=== PATIENT | male | born 1935 | race Caucasian/White ===

== ENCOUNTER 2021-08-02 00:50 | Day surgery (SDC) | payer MEDICARE, SELFPAY ==
[2021-07-26 10:41] VITALS: BMI 41.5
--- NOTE | 2021-07-26 11:13 | PC.NURSE ---
Report to the Outpatient Waiting Room, entrance under the green pavilion located off [facility], at time __0815 on date __08/02/21 . OR Time: ____101____. - You and your visitor will be asked a series of questions to screen for COVID 19 for your protection. - A mask is required within the hospital. Preoperative COVID Testing Requirements: No COVID Test needed if: (proof is required; if not received patient will have Rapid Test prior to entry) - Patient has received COVID Vaccine at least 14 days prior to procedure date or - Patient has positive COVID test result within last 90 days of surgery date. COVID Test needed if above criteria is not met If not COVID vaccinated a COVID test must be conducted within 72 hours of surgery and patient is asked to isolate self from time of testing until procedure. You will go to the [facility] for your COVID testing. The [facility] is located at the corner of [address] [facility]. You will only be called if COVID results are positive and your surgeon may reschedule your elective surgery date. Patients may have clear liquids (water, carbonated beverages, clear teas, apple juice) until 3 hours prior to surgery (0715 AM) with a maximum of 20 ounces. - No food from midnight until time of surgery - Infants may have breast milk until 4 hours before surgery, formula 6 hours prior to surgery. - Children will be allowed to drink immediately following surgery. If applicable, please bring a bottle or sippy cup to assist with drinking. Juice, water, soda, and popsicles are readily available. For infants on formula, please bring formula the day of surgery. Pacifiers are allowed. Take the following medications with a SIP of water the morning of surgery: __NONE__ Medications to discontinue per physician _STATES ALREADY STOPPING ASPIRIN 06/27/21, MULTIVITAMIN 3 DAYS PRIOR TO SURGERY_ Date to take last dose____07/29/21 Please no make-up, nail djiboutian, hairspray, perfume, deodorant, or body powder the day of surgery. No jewelry (including any body piercings) or valuables the day of surgery, leave them at home. Please take a shower or bath the night before, or the morning of, surgery with an antibacterial soap. Wear comfortable, loose fitting clothing. Children are encouraged to wear pajamas. - Jewelry must be removed prior to entering the operating room. Rings and piercings that are not removed may be cut off. - The hospital will not accept responsibility for valuables. - Please leave all valuables, including medications, at home the day of surgery. If you are going home after surgery, a licensed cart driver must drive you home. - NO public transportation without another adult. - We recommend that an adult stay with you for 24 hours following discharge. - We also recommend that you do not drive, make important decision, drink alcoholic beverages, or take any drugs that were not prescribed by your health care provider for at least 24 hours after your discharge time. For Pediatric surgeries, we recommend two adults accompany the child home (only one inside the building at this time). One visitor will be allowed to accompany the patient into the hospital. Patients visitor will be instructed to remain with patient at all times or leave the building. We will allow the visitor to come back to the postoperative area when patient is ready. Follow any additional instructions given to you from your surgeon. Telephone instructions given to _ZAY ALONZO and asked if any additional questions and then verbalized understanding. Patient advised to call surgeon office or pre surgery nurse liaison [phone] if any additional questions.
--- NOTE | 2021-07-26 13:40 | P.HP_ITS ---
H&P: HPI History of Present Illness Date/Time: 07/26/21 13:40 This patient is a pleasant 85-year-old male with longstanding outlet obstructive voiding symptoms that have become refractory to medical management. Specific he reports urinary hesitancy intermittent see with diminished stream and sense of incomplete emptying. He has had episodes of urinary retention that have required catheterization in the past. Although he has been voiding on combination therapy he still is troubled by his voiding pattern And incomplete bladder emptying. After discussion therapeutic options including laser prostatectomy minimally invasive procedures for BPH and TURP he elects for the latter. He is aware of the risk of this including, but not limited to, adverse cardiopulmonary events, persistent voiding symptoms hematuria in retrograde ejaculation. Chief Complaint: Difficulty urinating Review of Systems Cardiovascular: Cardiovascular: Denies chest pain, Denies lightheadedness, Denies palpitations and Denies dyspnea Respiratory: Respiratory: Denies dyspnea Gastrointestinal: Gastrointestinal: Denies diarrhea, Denies nausea and Denies vomiting Genitourinary: Genitourinary: Denies hematuria and Denies dysuria Endocrine: Endocrine: Denies palpitations PMFSH Social History Social History Smoking packs per day: 1 Smoking cigarettes per day: 20.0 Years smoked: 20 Smoking pack-years: 20.00 Smoking status: Former smoker Second hand tobacco smoke exposure: No Smoking end date: 05/05/86 Alcohol intake: current Drinks per week: 12 Substance use: never Substance use type: does not use Living arrangements: with family Spiritual care concerns: No Meds Home Medications and Allergies Home Medications Medication Instructions Recorded Confirmed Type acetaminophen [Tylenol Ex Str 500 mg PO HS 07/26/21 07/26/21 History Rapid Release] albuterol sulfate 2 inh INHALATION Q4-6H PRN 07/26/21 07/26/21 History aspirin 325 mg PO DAILY 07/26/21 07/26/21 History atorvastatin 80 mg HS 07/26/21 07/26/21 History finasteride 5 mg HS 07/26/21 07/26/21 History isosorbide mononitrate 30 mg PO HS 07/26/21 07/26/21 History lisinopril 10 mg PO HS 07/26/21 07/26/21 History melatonin 10 mg PO HS 07/26/21 07/26/21 History metolazone 2.5 mg HS 07/26/21 07/26/21 History metoprolol succinate 25 mg PO HS 07/26/21 07/26/21 History multivitamin [Multi-Vitamin] 1 tablet PO HS 07/26/21 07/26/21 History spironolactone 50 mg QAM 07/26/21 07/26/21 History tamsulosin 0.4 mg PO HS 07/26/21 07/26/21 History torsemide 20 mg QAM 07/26/21 07/26/21 History Allergies Allergy/AdvReac Type Severity Reaction Status Date / Time No Known Allergies Allergy Unknown Verified 07/26/21 10:32 Exam Const: General: no acute distress Resp: Effort & Inspection: normal respiratory effort GI: Inspection: non-distended GI Palp: No abdominal tenderness and No Guarding due to palpation present (GI) Auscultation: normal bowel sounds Assessment and Plan Assessment and plan (1) BPH loc w urin obs/LUTS: Code(s): N40.1 - Benign prostatic hyperplasia with lower urinary tract symptoms Status: Acute Assessment and Plan: * TURP
--- NOTE | 2021-08-01 15:20 | WPDANESEPPF ---
Anes - Initial Pre Proc Eval Procedure: Operation Date: 08/02/21 10:15 Proposed Procedures p Trans Urethral Resection Prostate - Leroy Darden MD Date/Time: 08/01/21 15:20 Surgeon: Leroy Darden MD Pre Op Diagnosis: BPH Patient Data Age: 85 Gender: M Height: 1.7 m Weight: 120.45 kg Allergies Allergy/AdvReac Type Severity Reaction Status Date / Time No Known Allergies Allergy Unknown Verified 08/02/21 08:32 Home Medications Medication Instructions Recorded Confirmed Type acetaminophen [Tylenol Ex Str 500 mg PO HS 07/26/21 08/02/21 History Rapid Release] albuterol sulfate 2 inh INHALATION Q4-6H PRN 07/26/21 08/02/21 History aspirin 325 mg PO DAILY 07/26/21 07/26/21 History atorvastatin 80 mg HS 07/26/21 08/02/21 History finasteride 5 mg HS 07/26/21 08/02/21 History isosorbide mononitrate 30 mg PO HS 07/26/21 08/02/21 History lisinopril 10 mg PO HS 07/26/21 08/02/21 History melatonin 10 mg PO HS 07/26/21 08/02/21 History metolazone 2.5 mg HS 07/26/21 08/02/21 History metoprolol succinate 25 mg PO HS 07/26/21 08/02/21 History multivitamin [Multi-Vitamin] 1 tablet PO HS 07/26/21 08/02/21 History spironolactone 50 mg QAM 07/26/21 08/02/21 History tamsulosin 0.4 mg PO HS 07/26/21 08/02/21 History torsemide 20 mg QAM 07/26/21 08/02/21 History Patient hx anesthesia problems: none Family hx anesthesia problems: none Results Review: All pre-operative results and documents have been reviewed as part of the pre-operative evaluation. [facility] Past Medical History Medical History (Updated 08/02/21 @ 09:04 by Darrius Álvarez MD) Atrial fibrillation BPH loc w urin obs/LUTS CAD (coronary artery disease) Cardiomegaly COPD (chronic obstructive pulmonary disease) Diastolic CHF ETOH abuse HTN (hypertension) Hyperlipidemia Morbid obesity with BMI of 40.0-44.9, adult MARJORIE (obstructive sleep apnea) Surgical History Surgical History (Updated 08/01/21 @ 15:21 by Darrius Álvarez MD) S/P CABG (coronary artery bypass graft) Social History Social History Smoking packs per day: 1 Smoking cigarettes per day: 20.0 Years smoked: 20 Smoking pack-years: 20.00 Smoking status: Former smoker Second hand tobacco smoke exposure: No Smoking end date: 05/05/86 Alcohol intake: current Drinks per week: 12 Substance use: never Substance use type: does not use Living arrangements: with family Spiritual care concerns: No Anes - Eval Final PreProcedure Day of Procedure 08/01/21 15:20 Patient weight: morbidly obese Heart: regular rate and rhythm Lungs: clear to auscultation and normal air movement Airway: Mallampati scale class II Neurological: alert and oriented Last oral intake: >/= 8 hours ASA classification: IV Emergent: no Anesthetic plan: proceed Anesthesia type and monitoring: general LMA Results Review: All pre-operative results and documents have been reviewed as part of the pre-operative evaluation. Informed Consent: The patient's anesthetic plan and its attendant risks and benefits were discussed with the patient/family/POA. Questions were solicited and answers provided to the satisfaction of the patient/family/POA.
[2021-08-02] VITALS (17 sets, daily range): BP systolic 77–167; BP diastolic 46–82; PULSE 69–104; RESP 14–24; TEMP 36.8–37.6; O2SAT 93–100; BMI 39.6
--- NOTE | 2021-08-02 06:31 | WPDHPUPDATE1 ---
History and Physical Update Update Date/Time: 08/02/21 06:31 History and Physical has been reviewed, including an updated exam of the patient. There are NO changes in the patient's condition. Risks, benefits, and alternatives have been discussed and questions answered. Patient agrees to proceed with procedure.
--- NOTE | 2021-08-02 08:41 | SUR.PREOP ---
PT HAS NOTED BILAT LOWER LEG EDEMA. RT > LT. PT AND SPOUSE STATES THIS IS NORMAL FOR HIM
[2021-08-02] MEDS: LACTATED RINGERS 1,000 ML 30 ML IV CONT (09:06)
[2021-08-02] MEDS: ceFAZolin 2 GM/D5W 50 ML 2 GM/50 ML BAG IVPB (09:45)
--- NOTE | 2021-08-02 10:24 | SUR.OPER ---
PATIENT HISTORY OF LEFT HIP DISLOCATION. BILATERAL HIPS PLACED GENTLY IN STIRRUPS WITH SLOW ELEVATION.
--- NOTE | 2021-08-02 10:48 | W.PM.PROC2 ---
Procedure Note - Detailed Date of Procedure 08/02/21 Pre-op Diagnosis BPH Post-op Diagnosis Same Procedure Performed TURP Surgeon Leroy Darden MD Anesthesia General Description of Procedure The patient was brought to the operative suite where he is prepped and draped in routine sterile fashion while in the dorsal lithotomy position after the uneventful induction of a general LMA anesthetic. A 27 [place] resectoscope sheath was placed into his bladder. He had no urethral strictures. The patient had trilobar hyperplasia with a small median lobe. The bladder itself was endoscopically normal, showing no mucosal hyperemia, intravesical neoplasm or foreign bodies. There was a single, orthotopic ureteral orifice bilaterally. These orifices were identified and preserved throughout the remainder of the procedure. Attention was first turned to resection of the median lobe. This resection was undertaken from the bladder neck to the verumontanum and carried out until the transverse fibers of the bladder neck were identified. The left lateral lobe was then resected starting at the 6 o'clock position, working counter clockwise to the 12 o'clock position. Again, resection was carried out from the bladder neck to the verumontanum until the capsular fibers of the prostate were identified. The right lateral lobe was resected in a similar fashion starting at the 6 o'clock position working clockwise to the 12 o'clock position and carried out until the capsular fibers of the prostate were identified. Apical tissue was then circumferentially resected. All chips were evacuated from the bladder using an MediCard evacuator. Hemostasis was obtained with electric cautery. The ureteral orifices were again inspected and found to be without injury. Estimated blood loss throughout this procedure was 50cc. The patient was taken to recovery room having tolerated this well. Estimated Blood Loss -50.0 Drains Yes Packing No Pathology Yes Complications No immediate complications Condition Stable Disposition PACU
--- NOTE | 2021-08-02 12:34 | ADMGEN ---
This patient, Alireza Gautam, was admitted to Medical Room 251-01. Patient/family oriented to hospital policies and general routines including ID bracelet, bed and alarms, visiting hours, pain management, procedures, bathroom and other care routines, personal items, smoking policy, room service/diet, and visiting hours. Information on how to activate the Rapid Response Team has been discussed. Patient/Family are encouraged to report perceived risks to care and to ask questions if they do not understand what they are told or what they should do.
[2021-08-02] MEDS: DEXTROSE 5%/LACTATED RINGERS 1,000 ML 125 ML IV CONT (12:43)
[2021-08-02] MEDS: ONDANSETRON INJ 4 MG/2 ML VIAL IV PUSH (13:03)
[2021-08-02] MEDS: DOCUSATE SODIUM 100 MG CAPSULE PO (16:58)
[2021-08-02] MEDS: ATORVASTATIN 40 MG TABLET 80 MG BY MOUTH (21:41)
[2021-08-02] MEDS: METOPROLOL SUCCINATE EXT REL 25 MG TABCR PO (21:41)
[2021-08-02] MEDS: MELATONIN 5 MG TABLET 10 MG PO (21:41)
[2021-08-02] MEDS: ISOSORBIDE MONONITRATE 30 MG TAB.ER.24H PO (21:42)
[2021-08-02] MEDS: metOLazone 2.5 MG TABLET BY MOUTH (21:42)
[2021-08-02] MEDS: lisinopriL 10 MG TABLET PO (21:42)
[2021-08-02] MEDS: ACETAMINOPHEN 500 MG TABLET PO (21:43)
[2021-08-03 04:02] VITALS: BP 70/30; PULSE 57; RESP 20; TEMP 36.3; O2SAT 96
[2021-08-03] MEDS: SODIUM CHLORIDE 0.9% IV 500 ML 999 ML IV CONT (04:23)
--- NOTE | 2021-08-03 04:31 | PC.NURSE ---
Pt BP 70/30. Dr Isaacs w/ Urology notified, order to draw AM labs now and admin 500ml Bolus. Recheck BP 30 minutes from time called and 30min post infusion. Pt asymptomatic, alert/oriented and conversing w/o difficulty.
[2021-08-03 04:34] LABS: Hematocrit 33.3 % (42.0-52.0); Hemoglobin 10.7 g/dL (14.0-18.0)
[2021-08-03 04:43] LABS: Anion Gap 3 mmol/L (8-16); Blood Urea Nitrogen 25 mg/dL (9-20); Calcium 8.3 mg/dL (8.4-10.2); Carbon Dioxide 30 mmol/L (22-30); Chloride 93 mmol/L (98-107); Estimated CRCL calculation 45 ml/min; Estimated Glomerular Filt Rate 52; Glucose 121 mg/dL (65-110); Sodium 126 mmol/L (137-145)
[2021-08-03 05:04] VITALS: BP 90/40
[2021-08-03 05:40] VITALS: BP 95/40
--- NOTE | 2021-08-03 06:55 | WPDUROPN2 ---
Progress Note: A&P Assessment and Plan (1) BPH loc w urin obs/LUTS: Code(s): N40.1 - Benign prostatic hyperplasia with lower urinary tract symptoms Status: Acute Assessment and Plan: Doing well POD #1. Voiding trial later this morning if urine remains clear off CBI. Subjective Subjective Date/Time Seen: 08/03/21 06:55 Comfortable, no complaints except for slept poorly Review of Systems Cardiovascular: Cardiovascular: Denies chest pain, Denies lightheadedness, Denies palpitations and Denies dyspnea Respiratory: Respiratory: Denies dyspnea Gastrointestinal: Gastrointestinal: Denies diarrhea, Denies nausea and Denies vomiting Genitourinary: Genitourinary: Denies hematuria and Denies dysuria Endocrine: Endocrine: Denies palpitations Exam Const: General: no acute distress Resp: Effort & Inspection: normal respiratory effort GI: Inspection: non-distended GI Palp: No abdominal tenderness and No Guarding due to palpation present (GI) Auscultation: normal bowel sounds Objective Data Vital Signs Vital Signs: Vital Signs - 24 hr 08/02/21 08:40 08/02/21 10:45 08/02/21 11:00 Temperature 98.5 F 98.3 F Pulse Rate 69 70 73 Respiratory Rate 20 20 14 Blood Pressure 167/82 H 144/71 H 84/74 L Pulse Oximetry 100 98 98 08/02/21 11:15 08/02/21 11:30 08/02/21 11:45 Temperature Pulse Rate 86 76 82 Respiratory Rate 18 18 20 Blood Pressure 123/76 110/46 L 77/64 L Pulse Oximetry 96 95 96 08/02/21 12:00 08/02/21 12:15 08/02/21 12:30 Temperature 98.8 F 98.6 F Pulse Rate 82 97 104 H Respiratory Rate 16 24 H 24 H Blood Pressure 126/59 L 154/62 H Pulse Oximetry 95 99 96 08/02/21 13:00 08/02/21 14:07 08/02/21 18:25 Temperature 98.7 F 99.6 F 98.4 F Pulse Rate 99 85 96 Respiratory Rate 20 18 20 Blood Pressure 130/68 128/54 L 107/75 Pulse Oximetry 96 98 98 08/02/21 18:46 08/02/21 20:04 08/02/21 21:41 Temperature 99.4 F Pulse Rate 95 95 Respiratory Rate 20 Blood Pressure 113/48 L Pulse Oximetry 98 93 08/02/21 23:15 08/02/21 23:47 08/03/21 04:02 Temperature 98.2 F 97.3 F L Pulse Rate 74 76 57 L Respiratory Rate 20 20 Blood Pressure 100/48 L 70/30 L Pulse Oximetry 94 97 96 08/03/21 05:04 08/03/21 05:40 Temperature Pulse Rate Respiratory Rate Blood Pressure 90/40 L 95/40 L Pulse Oximetry Intake/Output Intake/Output: Intake & Output 07/31/21 08/01/21 08/02/21 08/03/21 23:59 23:59 23:59 23:59 Intake Total 3350 1040 Output Total 6800 1400 Balance -3450 -360 Meds/Results Medications: Active Medications Generic Name Dose Route Start Last Admin Trade Name Freq PRN Reason Stop Dose Admin Acetaminophen 500 mg 08/02/21 21:00 08/02/21 21:43 Acetaminophen 500 Mg Tablet PO 500 mg HS [facility] Administration Hydrocodone Bitart/Acetaminophen 1 tab 08/02/21 12:06 Hydrocodone/Acetaminophen (*Crx) 5-325 Mg Tablet PO Q4H PRN Pain Rated 1-6 Albuterol 2 puff 08/02/21 12:17 Albuterol Sulfate (*Sp) Aerosol 1 Puff INHALATION Q4-6H PRN Wheezing Aspirin 325 mg 08/03/21 09:00 Aspirin 325 Mg Tablet PO DAILY [facility] Atorvastatin Calcium 80 mg 08/02/21 21:00 08/02/21 21:41 Atorvastatin 40 Mg Tablet BY MOUTH 80 mg HS [facility] Administration Cephalexin HCl 500 mg 08/03/21 09:00 Cephalexin 500 Mg Capsule PO QID ISSA Docusate Sodium 100 mg 08/02/21 17:00 08/02/21 16:58 Docusate Sodium 100 Mg Capsule PO 100 mg BID [facility] Administration Fentanyl Citrate 25 mcg 08/01/21 15:05 Fentanyl Citrate Inj (*Crx) 100 Mcg/2 Ml Vial IV PUSH Q2M PRN Pain Hyoscyamine 0.125 mg 08/02/21 12:06 Hyoscyamine Sulfate 0.125 Mg Tablet SUBLINGUAL Q6H PRN Bladder Spasm Isosorbide Mononitrate 30 mg 08/02/21 21:00 08/02/21 21:42 Isosorbide Mononitrate 30 Mg Tab.Er.24h PO 30 mg HS ISSA Administration Lisinopril 10 mg 08/02/21 21:00 08/02/21 21:42 Lisinopri
--- NOTE | 2021-08-03 08:41 | WPDANESPN ---
Anes - Prog Note Post-Op Date/Time: 08/03/21 08:41 Cardiovascular status: normal Respiratory status: normal Airway patency: baseline Mental status: baseline Post-Op hydration status: normal Vital Signs: Last Vital Signs Temp 36.3 C L 08/03/21 04:02 Pulse 57 L 08/03/21 04:02 Resp 20 08/03/21 04:02 BP 95/40 L 08/03/21 05:40 Pulse Ox 96 08/03/21 04:02 Pain Score (VAS): 0 I/O: Intake & Output 08/02/21 08/03/21 08/03/21 23:59 07:59 15:59 Intake Total 2300 1040 Output Total 1000 1400 Balance 1300 -360 Laboratory Tests 08/03/21 04:28 08/03/21 04:28 08/03/21 08/03/21 04:28 04:28 Hgb 10.7 L Hct 33.3 L Sodium 126 L Potassium 4.0 Chloride 93 L Carbon Dioxide 30 Anion Gap 3 L BUN 25 H Creatinine 1.30 Estim Creat Clear Calc 45 Estimated GFR 52 L Glucose 121 H Calcium 8.3 L Post-procedural complaints: none Patient Feedback: Patient satisfied with anesthetic care.
[2021-08-03] MEDS: DOCUSATE SODIUM 100 MG CAPSULE PO (09:49)
[2021-08-03] MEDS: SPIRONOLACTONE 50 MG TABLET BY MOUTH (09:49)
[2021-08-03] MEDS: CEPHALEXIN 500 MG CAPSULE PO ×2 (09:49→12:41)
[2021-08-03] MEDS: ASPIRIN 325 MG TABLET PO (09:49)
[2021-08-03] MEDS: TORSEMIDE 20 MG TABLET BY MOUTH (09:49)
[2021-08-03 10:19] VITALS: BP 96/42; PULSE 69; RESP 16; TEMP 36.8; O2SAT 99
== END 2021-08-03 14:30 | disposition home or self-care (01) ==
LOC: ANHSURGERY 07:19 → ANH2MED 12:07
PROVIDERS: PCP Family Medicine; Visit Provider Urology
PROC: 0VT08ZZ Resection of Prostate, Via Natural or Artificial Opening Endoscopic (ICD-10-PCS; CPT 52601; principal; 2021-08-02 10:15)
DX: C61 Malignant neoplasm of prostate (principal); R33.8 Other retention of urine; Z87.891 Personal history of nicotine dependence; Z79.82 Long term (current) use of aspirin; Z79.51 Long term (current) use of inhaled steroids; I25.10 Atherosclerotic heart disease of native coronary artery without angina pectoris; I48.91 Unspecified atrial fibrillation; J44.9 Chronic obstructive pulmonary disease, unspecified; I11.0 Hypertensive heart disease with heart failure; I50.32 Chronic diastolic (congestive) heart failure; E78.5 Hyperlipidemia, unspecified; G47.33 Obstructive sleep apnea (adult) (pediatric); F10.10 Alcohol abuse, uncomplicated; Z95.1 Presence of aortocoronary bypass graft; E66.01 Morbid (severe) obesity due to excess calories; Z68.39 Body mass index [BMI] 39.0-39.9, adult
CPT/HCPCS: 52601; 36415; 80048; 85014; 85018; 88305; A9270; C1757; J0690; J2405; J2704; J3010; J7040; J7120; J7121

== ENCOUNTER 2021-08-16 07:03 | Outpatient (CLI) | payer MEDICARE, SELFPAY ==
--- NOTE | ~2021-08-16 | CT_ITS ---
EXAMINATION: CT abdomen pelvis w con EXAM DATE: 08/16/2021 07:51 INDICATION: Prostate cancer. TECHNIQUE: Spiral CT of the abdomen and pelvis was performed following intravenous injection of 100 m L Omnipaque 350. Axial, coronal and sagittal images of the abdomen and pelvis were reviewed. The do se-length product (DLP) for this examination was 1476.39 mGy-cm. The exposure was tailored according to patient size (auto mA exposure control), and iterative reconstruction (ASIR) was used as addition al dose reduction technique. There is no prior study for comparison. 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 Liver, pancreas, adrenal glands are unremarkable. There are cholecystectomy clips. Portal and splenic veins are patent. Kidneys enhance symmetrically . There is no hydronephrosis. Diffuse bladder wall thickening consistent with chronic cystitis. Right-sided pelvic obturator lymph node measuring 1.8 x 1.3 cm, a similar sized node on the left. Borderline sized inguinal lymph nodes. Retroperitoneal pelvic inlet lymph node measuring 1.5 x 2.6 cm. There is hazy fat stranding surround ing many of the normal sized pelvic and retroperitoneal lymph nodes. Borderline sized bilateral ingui nal lymph nodes. The prostate poorly visualized due to metallic artifact from bilateral hip replaceme nts. Small bilateral inguinal fat-containing hernias. There is extensive scattered arterial sclerotic disease. There are no findings to suggest appendicitis. Scattered colonic and small bowel diverticulosis witho ut adjacent fat stranding. The stomach and small bowel are unremarkable. There is expected amount of colonic stool. No free intraperitoneal gas. There is cardiomegaly. Sternotomy wires. Basilar in tralobular septal thickening right more than left, edema and/or interstitial lung disease. There are no osteoblastic or osteolytic lesions identified. IMPRESSION: 1. Pelvic and retroperitoneal lymphadenopathy, some mildly enlarged but many nodes with hazy surroun ding fat stranding, could be reactive to chemotherapy if there is such history. Reactive etiology, m etastatic prostate cancer, lymphoma are in the differential diagnosis. 2. Diffuse bladder wall thickening consistent with chronic cystitis. 3. Small inguinal fat-containing hernias. 4. Colonic and small bowel diverticulosis. 5. Cardiomegaly. Basilar intralobular septal thickening, edema and/or pulmonary fibrosis. 6. Extensive arterial sclerotic disease. Reviewed, dictated and finalized at location B. IMPRESSION: 1. Pelvic and retroperitoneal lymphadenopathy, some mildly enlarged but many n odes with hazy surrounding fat stranding, could be reactive to chemotherapy if there is such history. Reactive etiology, metastatic prostate cancer, lymphoma are in the differential diagnosis. 2. Diffuse bladder wall thickening consistent with chronic cystitis. 3. Small inguinal fat-containing hernias. 4. Colonic and small bowel diverticulosis. 5. Cardiomegaly. Basilar intralobular septal thickening, edema and/or pulmonar y fibrosis. 6. Extensive arterial sclerotic disease.
== END 2021-08-16 07:04 | disposition home or self-care (01) ==
LOC: ANHIMG 07:17
PROVIDERS: Visit Provider Urology
DX: C61 Malignant neoplasm of prostate (principal); K40.90 Unilateral inguinal hernia, without obstruction or gangrene, not specified as recurrent; K57.30 Diverticulosis of large intestine without perforation or abscess without bleeding; I51.7 Cardiomegaly
CPT/HCPCS: 74177; Q9967

== ENCOUNTER 2021-08-20 08:06 | Outpatient (CLI) | payer MEDICARE, SELFPAY ==
--- NOTE | ~2021-08-20 | NM_ITS ---
EXAMINATION: NM bone scan whole body DATE: 08/20/2021 11:39 INDICATION: Prostate cancer TECHNIQUE: 26.5 mCi Tc-99m HDP was administered intravenously. Delayed whole-body scintigrams were o btained. COMPARISON: CT abdomen and pelvis dated 08/16/2021 FINDINGS: Likely degenerative joint centered uptake at the bilateral mid feet, the bilateral knees and shoulder s most severe at the right glenohumeral joint. 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 Additional mild uptake associated with multiple degenerative endplates in the thoracic an d lumbar spine. No other suspicious foci of abnormal bone uptake to suggest metastatic disease. IMPRESSION: 1. No evident metastatic disease. Reviewed, dictated and finalized at location A.
== END 2021-08-20 08:07 | disposition home or self-care (01) ==
PROVIDERS: Visit Provider Urology
DX: C61 Malignant neoplasm of prostate (principal)
CPT/HCPCS: 78306; A9561